=== PATIENT | female | born 1995 | race Two or more races ===

== ENCOUNTER 2025-10-18 12:27 | Inpatient (IN) | payer BC ==
[~2025-10-18] VITALS: Ht 170.2 cm; Wt 95.3 kg
[~2025-10-18 12:27] MED LIST: CEFAZOLIN SODIUM 1,000 MG VIAL ONE; MAGNESIUM SULFATE IN WATER 4 GM/100 ML PIGGYBACK IV ONE
[2025-10-18 12:40] VITALS: BP 133/85
[2025-10-18] MEDS ORDERED: NIFEDIPINE20 MG PO (13:11)
[2025-10-18] MEDS ORDERED: CHILDREN'S ASPI81 MG PO (13:11)
[2025-10-18] MEDS ORDERED: PRENATAL TABLE1 EAC1 PO (13:11)
[2025-10-18] MEDS ORDERED: OXYTOCIN 10 UNITS/ML VIAL ONE (13:26)
[2025-10-18] MEDS ORDERED: CARBOPROST TROMETHAMINE 250 MCG/ML AMPUL IM ONE (13:26)
[2025-10-18] MEDS ORDERED: ERYTHROMYCIN BASE OPHT 1GM EACH TUBE OP ONE (13:27)
[2025-10-18] MEDS ORDERED: MAGNESIUM SULFATE IN WATER 100 ML IV ONE (13:45)
[2025-10-18] MEDS ORDERED: CEFAZOLIN SODIUM 1,000 MG VIAL IV SCH ×2 (13:45→18:00)
[2025-10-18] MEDS ORDERED: RINGERS SOLUTION,LACTATED 1,000 ML IV SCH (13:45)
[2025-10-18] MEDS ORDERED: CEFAZOLIN SODIUM 1,000 MG VIAL ONE (17:58)
[2025-10-18] MEDS ORDERED: MORPHINE SULFATE 4 MG/ML CARTRIDGE IV SCH (18:00)
[2025-10-18] MEDS ORDERED: PROMETHAZINE HCL 25 MG/ML AMPUL IV SCH (18:00)
[2025-10-18 22:15] VITALS: BP 115/75
[2025-10-19 01:25] VITALS: BP 114/70
[2025-10-19 08:00] VITALS: BP 125/84
[2025-10-19 08:06] LABS: BASO % 0.1 % (0.1-1.2); EOS # 0.00 (0.04-0.54); EOS % 0.0 % (0.7-7.0); LYMPH # 1.55 (1.18-3.74); LYMPH % 10.7 % (19.3-53.1); MEAN PLATELET VOLUME 12.60 fl (9.4-12.4); MONO # 0.71 (0.24-0.82); MONO % 4.9 % (4.7-12.5); NEUT # 12.10 (1.56-6.13); NEUT % 83.6 % (34.0-71.1); RED CELL DISTRIBUTION WIDTH 12.3 % (11.6-14.4)
[2025-10-19] MEDS ORDERED: NAPROXEN 500 MG TABLET PO PRN (09:45)
[2025-10-19] MEDS ORDERED: OxyCODONE HCL 5 MG TABLET (ROXICODONE) PO PRN (09:45)
[2025-10-19 16:40] VITALS: BP 120/82
[2025-10-20] VITALS: BP 117/80
[2025-10-20 08:00] VITALS: BP 120/78
== END 2025-10-20 14:48 | disposition home or self-care (01) | DRG 786 ==
LOC: LDR 12:27 → OB/GYN 12:27 → O/R 12:27 → OB/GYN 15:37
PROVIDERS: ADMIT Specialist; ATTEND Specialist
PROC: 4A1HXCZ Monitoring of Products of Conception, Cardiac Rate, External Approach (ICD-10-PCS; 2025-10-18)
PROC: 10D00Z1 Extraction of Products of Conception, Low, Open Approach (ICD-10-PCS; principal; 2025-10-18 15:45)
DX: O10.02 Pre-existing essential hypertension complicating childbirth (principal); O60.14X0 Preterm labor third trimester with preterm delivery third trimester, not applicable or unspecified; O69.81X0 Labor and delivery complicated by cord around neck, without compression, not applicable or unspecified; O69.0XX0 Labor and delivery complicated by prolapse of cord, not applicable or unspecified; Z3A.36 36 weeks gestation of pregnancy; Z37.0 Single live birth